=== PATIENT | female | born 1990 | race Caucasian/White ===

== ENCOUNTER 2020-01-20 09:36 | Emergency (ER) | payer OTHER, SELFPAY ==
[2020-01-20 12:37] VITALS: BP 119/79
== END 2020-01-20 12:21 | disposition home or self-care (01) ==
LOC: ED 09:36
DX: N39.0 Urinary tract infection, site not specified (principal); Z20.828 Contact with and (suspected) exposure to other viral communicable diseases
CPT/HCPCS: U0003-CS